=== PATIENT | female | born 1965 | race Hispanic/Latino ===

== ENCOUNTER 2019-05-30 08:39 | Emergency (ER) | payer SELFPAY ==
--- NOTE | 2019-05-30 09:21 | Emergency Department Report ---
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 On Site Property Manager initially heard a noise and found patient on the floor. She assisted patient off the floor and patient had another witnessed fall 2 to 5 minutes later. Patient does not complain of any pain. On Site Property Manager stated patient apartment this a.m. Patient is alert and oriented to self only and does not know place or year. On Site Property Manager states patient is at her baseline mental status, has been eating and drinking appropriately, has not had any complaints other than chronic intermittent back pain. At [facility] Pt walks without assistance. - Related Data Home Medications Medication Instructions Recorded Confirmed Last Taken Donepezil HCl [Donepezil HCl Odt] 10 mg PO HS 05/30/19 05/30/19 05/29/19 Ferrous Sulfate [Iron 325 MG] 325 mg PO AC 05/30/19 05/30/19 05/29/19 Memantine HCl 5 mg PO BID 05/30/19 05/30/19 05/29/19 Previous Rx's Medication Instructions Recorded Last Taken Type Nitrofurantoin Hale/M-Cryst 100 mg PO Q12HR #10 capsule 05/30/19 Unknown Rx [Macrobid CAP] Allergies Allergy/AdvReac Type Severity Reaction Status Date / Time No Known Allergies Allergy Unverified 05/30/19 08:57 ED Review of Systems ROS: Stated complaint: FALL/NAUSEA/VOMITING Other details as noted in HPI Comment: All other systems reviewed and negative ED Past Medical Hx - Past Medical History Previous Medical History?: Yes Hx Dementia: Yes Additional medical history: Alzheimers - Social History Smoking Status: Smoker, Current Status Unknown Substance Use Type: None - Medications Home Medications: Home Medications Medication Instructions Recorded Confirmed Last Taken Type Donepezil HCl [Donepezil HCl Odt] 10 mg PO HS 05/30/19 05/30/19 05/29/19 History Ferrous Sulfate [Iron 325 MG] 325 mg PO AC 05/30/19 05/30/19 05/29/19 History Memantine HCl 5 mg PO BID 05/30/19 05/30/19 05/29/19 History Nitrofurantoin Hale/M-Cryst 100 mg PO Q12HR #10 capsule 05/30/19 Unknown Rx [Macrobid CAP] ED Physical Exam - General Limitations: Other - Other Other exam information: General: No acute distress Head: Mild redness to forehead without hematoma Eyes: normal appearance ENT: Moist mucous membranes Neck: Normal appearance, no midline tenderness Chest: Clear to auscultation bilaterally CV: Regular rate and rhythm Abdomen: Soft, normal bowel sounds, nontender, nondistended, no rebound or guarding Back: Normal inspection Extremity: Normal inspection, full range of motion Neuro: Alert O x 1, no facial asymmetry, speech clear, no gross motor sensory deficit, [id number] function intact Psych: Appropriate behavior Skin: No rash ED Course Vital Signs 05/30/19 05/30/19 05/30/19 08:46 08:51 09:00 Temperature 98.1 F Pulse Rate 74 Respiratory 16 Rate Blood Pressure 131/50 131/50 Blood Pressure [Right] O2 Sat by Pulse 71 L 97 98 Oximetry 05/30/19 05/30/19 05/30/19 09:07 09:36 10:00 Temperature Pulse Rate 75 83 Respiratory 16 21 Rate Blood Pressure 122/71 122/71 Blood Pressure 122/71 [Right] O2 Sat by Pulse 99 72 L 96 Oximetry 05/30/19 05/30/19 05/30/19 10:30 11:00 11:30 Temperature Pulse Rate 76 74 66 Respiratory 16 13 11 L Rate Blood Pressure 146/61 111/63 129/62 Blood Pressure [Right] O2 Sat by Pulse 100 96 100 Oximetry 05/30/19 05/30/19 05/30/19 12:00 12:30 13:00 Temperature Pulse Rate 61 71 73 Respiratory 13 13 15 Rate Blood Pressure 128/64 140/83 136/86 Blood Pressure [Right] O2 Sat by Pulse 100 99 100 Oximetry ED Medical Decision Making - Lab Data Result diagrams: 05/30/19 10:04 05/30/19 10:04 Lab Results 05/30/19 05/30/19 05/30/19 Range/Units 10:04 10:04 10:09 WBC 6.9 (4.5-11.0) K/mm3 RBC 5.36 H (3.65-5.03) M/mm3 Hgb 15.0 H (10.1-14.3) gm/dl Hct 45.2 H (30.3-42.9) % MCV 85 (79-97) fl MCH 28 (28-32) pg MCHC 33 (30-34) % RDW 13.1 L (13.2-15.2) % Plt Count 281 (140-440) K/mm3 Lymph % (Auto) 15.0 (13.4-35.0) % Hale % (Auto) 6.6 (0.0-7.3) % Eos % (Auto) 1.1 (0.0-4.3) % Baso % (Auto) 0.6 (0.0-1.8) % Lymph # 1.0 L (1.2-5.4) K/mm3 Hale # 0.5 (0.0-0.8) K/mm3 Eos # 0.1 (0.0-0.4) K/mm3 Baso # 0.0 (0.0-0.1) K/mm3 Seg Neutrophils % 76.7 H (40.0-70.0) % Seg Neutrophils # 5.3 (1.8-7.7) K/mm3 Sodium 143 (137-145) mmol/L Potassium 4.7 (3.6-5.0) mmol/L Chloride 103.8 (98-107) mmol/L Carbon Dioxide 24 (22-30) mmol/L Anion Gap 20 mmol/L BUN 12 (7-17) mg/dL Creatinine 0.8 (0.7-1.2) mg/dL Estimated GFR > 60 ml/min BUN/Creatinine Ratio 15 % Glucose 92 (65-100) mg/dL Calcium 10.0 (8.4-10.2) mg/dL Urine Color Yellow (Yellow) Urine Turbidity Hazy (Clear) Urine pH 5.0 (5.0-7.0) Ur Specific [place] 1.035 H (1.003-1.030) Urine Protein 100 mg/dl (Negative) mg/dL Urine Glucose (UA) Negative (Negative) mg/dL Urine Ketones Negative (Negative) mg/dL Urine Blood 5-10 (Negative) Urine Nitrite Negative (Negative) Urine Bilirubin Negative (Negative) Urine Urobilinogen < 0.2 (<2.0) mg/dL Ur Leukocyte Esterase Moderate (Negative) Urine WBC (Auto) 25.0 H (0.0-6.0) /HPF Urine RBC (Auto) 11.0 (0.0-6.0) /HPF U Epithel Cells (Auto) 47.0 H (0-13.0) /HPF Urine Bacteria (Auto) 4+ (Negative) /HPF Ur Transition Epith Cell 2 /HPF Hyaline Casts 35 /LPF Urine Mucus 3+ /HPF - Radiology Data Radiology results: report reviewed CT HEAD WITHOUT CONTRAST INDICATION / CLINICAL INFORMATION: Headache after a fall, dementia. TECHNIQUE: Axial imaging performed from the skull apex through the skull base without the use of contrast. Sagittal and coronal reformatted images. All CT scans at this location are performed using CT dose reduction for ALARA by means of automated exposure control. COMPARISON: None available. FINDINGS: CEREBRAL PARENCHYMA: No significant abnormality. No acute territorial infarct. Age appropriate mild cortical volume loss is noted. HEMORRHAGE: None. EXTRA-AXIAL SPACES: Normal in size and morphology for the patient's age. VENTRICULAR SYSTEM: Normal in size and morphology for the patient's age. MIDLINE SHIFT OR HERNIATION: None. CEREBELLUM / BRAINSTEM: No significant abnormality. CALVARIUM: No significant abnormality. ORBITS: Normal as visualized. PARANASAL SINUSES / MASTOID AIR CELLS: Normal as visualized. SOFT TISSUES of HEAD: A rounded well-circumscribed soft tissue lesion containing fat and a fluid level is identified just lateral to the right orbit measuring 3.7 x 2.4 x 3.8 cm. This presumably represents a lipoma. This fluid level within may represent a small amount of hemorrhage. ADDITIONAL FINDINGS: None. IMPRESSION: No acute intracranial abnormality. Age-appropriate cortical volume loss. Slightly complex soft tissue lipoma lateral to the right orbit. Please correlate with the patient. CT CERVICAL SPINE WITHOUT CONTRAST INDICATION: MAIN: NECK PAIN AFTER A fall, dementia. TECHNIQUE: Axial imaging performed through the cervical spine without the use of contrast. Sagittal and coronal reconstructed images were also revie wed. All CT scans at this location are performed using CT dose reduction for ALARA by means of automated exposure control. COMPARISON: None FINDINGS: Alignment: Spinal alignment is normal. There is straightening of the normal lordosis which could be secondary to positioning or muscular spasm. Bones: There is no acute osseous abnormality. Mild to moderate degenerative disc disease with bilateral uncovertebral spurring is identified at C5-6 and C6-7. Moderate bilateral neural foraminal narrowing is suspected at these levels. The remaining levels are within normal limits. Soft tissues: No acute or significant incidental soft tissue abnormality. IMPRESSION: No acute abnormality. Cervical spondylosis as described. - Medical Decision Making Patient without physical complaints in the ED and normal pulse ox with erroneous values in the 70s documented on medical record. CT head, CT cervical spine, and labs unremarkable. UA with possible infection however, high level of epithelial cells suggesting contamination. Orthostatics positive with increased heart rate with standing. High specific gravity on UA also suggest dehydration. Patient received Macrobid p.o. and 1 L normal saline and tolerated ambulation in ed without difficulty. She will be discharged on Macrobid for UTI and encouraged to increase oral fluid intake today. - Differential Diagnosis Fracture, contusion, ICH, Critical Care Time: No Critical care attestation.: If time is entered above; I have spent that time in minutes in the direct care of this critically ill patient, excluding procedure time. ED Disposition Clinical Impression: Fall, UTI (urinary tract infection), Dehydration Disposition: DC-01 TO HOME OR SELFCARE Is pt being admited?: No Does the pt Need Aspirin: No Condition: Stable Instructions: Fall Prevention for Older Adults (ED), Dehydration (ED), Urinary Tract Infection in Women (ED) Additional Instructions: Take the medication as prescribed. Follow-up with your doctor or doctor/clinic provided. Return if symptoms worsen as indicated by your discharge instructions. Prescriptions: Nitrofurantoin Hale/M-Cryst [Macrobid CAP] 100 mg PO Q12HR #10 capsule Referrals: PRIMARY CARE, [Primary Care Provider] - 3-5 Days Time of Disposition: 13:41
--- NOTE | 2019-05-30 09:56 | Cat Scan Report ---
CT HEAD WITHOUT CONTRAST INDICATION / CLINICAL INFORMATION: Headache after a fall, dementia. TECHNIQUE: Axial imaging performed from the skull apex through the skull base without the use of cont rast. Sagittal and coronal reformatted images. All CT scans at this location are performed using CT dose reduction for ALARA by means of automated exposure control. COMPARISON: None available. FINDINGS: CEREBRAL PARENCHYMA: No significant abnormality. No acute territorial infarct. Age appropriate mild c ortical volume loss is noted. HEMORRHAGE: None. EXTRA-AXIAL SPACES: Normal in size and morphology for the patient's age. VENTRICULAR SYSTEM: Normal in size and morphology for the patient's age. MIDLINE SHIFT OR HERNIATION: None. CEREBELLUM / BRAINSTEM: No significant abnormality. CALVARIUM: No significant abnormality. ORBITS: Normal as visualized. PARANASAL SINUSES / MASTOID AIR CELLS: Normal as visualized. SOFT TISSUES of HEAD: A rounded well-circumscribed soft tissue lesion containing fat and a fluid leve l is identified just lateral to the right orbit measuring 3.7 x 2.4 x 3.8 cm. This presumably represe nts a lipoma. This fluid level within may represent a small amount of hemorrhage. ADDITIONAL FINDINGS: None. IMPRESSION: No acute intracranial abnormality. Age-appropriate cortical volume loss. Slightly complex soft tissue lipoma lateral to the right orbit. Please correlate with the patient. Signer Name: Rey Mckenzie Jr, MD Signed: 05/30/2019 9:52 AM Workstation Name: [id number]
--- NOTE | 2019-05-30 09:59 | Cat Scan Report ---
CT CERVICAL SPINE WITHOUT CONTRAST INDICATION: MAIN: NECK PAIN AFTER A fall, dementia. TECHNIQUE: Axial imaging performed through the cervical spine without the use of contrast. Sagittal and coronal reconstructed images were also reviewed. All CT scans at this location are performed us ing CT dose reduction for ALARA by means of automated exposure control. COMPARISON: None FINDINGS: Alignment: Spinal alignment is normal. There is straightening of the normal lordosis which could be secondary to positioning or muscular spasm. Bones: There is no acute osseous abnormality. Mild to moderate degenerative disc disease with bilat eral uncovertebral spurring is identified at C5-6 and C6-7. Moderate bilateral neural foraminal narro wing is suspected at these levels. The remaining levels are within normal limits. Soft tissues: No acute or significant incidental soft tissue abnormality. IMPRESSION: No acute abnormality. Cervical spondylosis as described. Signer Name: Rey Mckenzie Jr, MD Signed: 05/30/2019 9:54 AM Workstation Name: [id number]
[2019-05-30 10:28] LABS: Basophils % (Auto) 0.6 % (0.0-1.8); Eosinophils # (Auto) 0.1 K/mm3 (0.0-0.4); Eosinophils % (Auto) 1.1 % (0.0-4.3); Hematocrit 45.2 % (30.3-42.9); Mean Corpuscular HGB Conc 33 % (30-34); Mean Corpuscular Volume 85 fl (79-97); Monocytes # (Auto) 0.5 K/mm3 (0.0-0.8); Monocytes % (Auto) 6.6 % (0.0-7.3); Platelet Count 281 K/mm3 (140-440); Red Blood Count 5.36 M/mm3 (3.65-5.03); Red Cell Distribution Width 13.1 % (13.2-15.2)
[2019-05-30 10:48] LABS: BUN/Creatinine Ratio 15; Blood Urea Nitrogen 12 mg/dL (7-17); Hemolysis Index 20
[2019-05-30 11:08] LABS: Bilirubin,Urine Negative (Negative); Color,Urine Yellow (Yellow)
[2019-05-30 11:09] LABS: Urobilinogen,Urine < 0.2 mg/dL (<2.0)
[2019-05-30 11:21] LABS: Bacteria,Urine 4+ /HPF (Negative); Hyaline Casts,Urine 35 /LPF; Mucus,Urine 3+ /HPF
[2019-05-30] MEDS ORDERED: NITROFURANTOIN MONOHYD/M-CRYST 100 MG CAP PO ONE (11:43)
[2019-05-30] MEDS ORDERED: SODIUM CHLORIDE 0.9% 1000 ML 1,000 ML IV ONE (11:43)
[2019-05-30 13:29] VITALS: BP 136/86
== END 2019-05-30 13:55 | disposition home or self-care (01) ==
LOC: ED 08:39
DX: S00.83XA Contusion of other part of head, initial encounter (principal); N39.0 Urinary tract infection, site not specified; E86.0 Dehydration; G30.9 Alzheimer's disease, unspecified; F02.80 Dementia in other diseases classified elsewhere, unspecified severity, without behavioral disturbance, psychotic disturbance, mood disturbance, and anxiety; F17.200 Nicotine dependence, unspecified, uncomplicated; W18.30XA Fall on same level, unspecified, initial encounter; Y93.89 Activity, other specified; Y92.89 Other specified places as the place of occurrence of the external cause; Y99.8 Other external cause status
CPT/HCPCS: 36415; 70450; 72125; 80048; 81001; 85025; 87086; 93005; 93010; 96360; 99285; J7030

== ENCOUNTER 2021-02-05 23:40 | Emergency (ER) | payer MEDICAID, MEDICARE ==
--- NOTE | 2021-02-06 00:20 | Emergency Department Report ---
ED General Adult HPI - General Chief complaint: Medical Clearance Stated complaint: Patient is demented. No collateral available from family Time Seen by Provider: 02/06/21 00:17 Source: patient, family, EMS ( EMS documentation not available at time of chart dictation ), RN notes reviewed, old records reviewed Mode of arrival: Stretcher Limitations: Other (Patient is demented. Patient is a poor historian) - History of Present Illness Initial comments: The patient was evaluated in the emergency department for symptoms described in the history of present illness. He/she was evaluated in the context of the global COVID-19 pandemic, which necessitated consideration that the patient might be at risk for infection with the virus that causes COVID-19. Institutional protocols and algorithms that pertain to the evaluation of patients at risk for COVID-19 are in a state of rapid change based on information released by regulatory bodies including the CDC and federal and state organizations. These policies and algorithms were followed during the p nelia's care in the emergency department. Please note that these policies, procedures and recommendations changed on a rapid basis. The patient is a 55-year-old female. She is not known to myself previously. The patient herself endorses no medical complaints. She denies physical pain. She denies homicidality and suicidality. She appears to be confused. Review of chart indicates that she has a history of dementia. Triage nurse documented that EMS were contacted because the patient was r eportedly agitated. Contacted listed phone number on the patient's chart, and discussed with her br other, Mr. Matthew Blair; [phone]. He states the patient does not live with him. He states the patient lives with Ms. Jennifer Alcantar; [phone]. He stated that Ms. Alcantar will be able to answer my questions. Call of the listed phone number. Nobody answered. Left voicemail for call back. Mr. Matthew Blair subsequently called back with department, and informed the city secretary staff that Ms. Alcantar is deliberately not answering phone calls. It is unclear why. No additional history is available at this time. No collateral information is available at this time. EMS documentation is not available to myself for review at this time. The patient denies all medical and physical complaints. - Related Data Home Medications Medication Instructions Recorded Confirmed Last Taken Donepezil HCl [Donepezil HCl Odt] 10 mg PO HS 02/17/20 10/27/21 02/16/20 Memantine HCl 5 mg PO BID 05/30/19 02/06/21 05/29/19 Ergocalciferol (Vitamin D2) 50 mcg PO DAILY 02/06/21 02/06/21 Unknown [Vitamin D2] Allergies Allergy/AdvReac Type Severity Reaction Status Date / Time No Known Allergies Allergy Verified 02/05/21 23:59 ED Review of Systems ROS: Stated complaint: ALTERED MENTAL STATUS Other details as noted in HPI Comment: Unobtainable due to pts medical conditions ED Past Medical Hx - Past Medical History Hx Dementia: Yes Additional medical history: Alzheimers - Social History Smoking Status: Smoker, Current Status Unknown Substance Use Type: None - Medications Home Medications: Home Medications Medication Instructions Recorded Confirmed Last Taken Type Donepezil HCl [Donepezil HCl Odt] 10 mg PO HS 05/30/19 02/06/21 05/29/19 History Memantine HCl 5 mg PO BID 05/30/19 02/06/21 05/29/19 History Ergocalciferol (Vitamin D2) 50 mcg PO DAILY 02/06/21 02/06/21 Unknown History [Vitamin D2] ED Physical Exam - General Limitations: Other (Patient is demented and a poor historian) General appearance: alert, in no apparent distress - Head Head exam: Present: atraumatic, normocephalic - Eye Eye exam: Present: normal appearance, EOMI. Absent: nystagmus - ENT ENT exam: Present: normal exam, normal orophraynx, mucous membranes moist, normal external ear exam - Neck Neck exam: Present: normal inspection, full ROM. Absent: tenderness, meningismus - Respiratory Respiratory exam: Present: normal lung sounds bilaterally. Absent: respiratory distress, wheezes, rales, rhonchi, stridor, decreased breath sounds - Cardiovascular Cardiovascular Exam: Present: regular rate, normal rhythm, normal heart sounds. Absent: bradycardia, tachycardia, irregular rhythm, systolic murmur, diastolic murmur, rubs, gallop - GI/Abdominal GI/Abdominal exam: Present: soft. Absent: distended, tenderness, guarding, rebound, rigid, pulsatile mass - Extremities Exam Extremities exam: Present: normal inspection, full ROM, other (2+ pulses noted in the bilateral upper and lower extremities. There is no palpable cord. negative Homans sign. Muscular compartments are soft. The pelvis is stable.). Absent: pedal edema, calf tenderness - Back Exam Back exam: Present: normal inspection, full ROM. Absent: tenderness, CVA tenderness (R), CVA tenderness (L), muscle spasm, vertebral tenderness - Neurological Exam Neurological exam: Present: alert (The patient is alert to name. The patient follows commands), normal gait, other (No facial droop. Tongue midline. Extraocular movements intact bilaterally. Facial sensation intact to light touch in V1, V2, V3 distribution bilaterally. 5 and a 5 strength in 4 extremities. Sensation intact to light touch in 4 extremities.). Absent: motor sensory deficit - Psychiatric Psychiatric exam: Absent: homicidal ideation, suicidal ideation - Skin Skin exam: Present: warm, dry, intact, normal color. Absent: rash ED Course Vital Signs 02/05/21 02/06/21 02/06/21 23:58 00:26 07:53 Temperature 98.4 F 97.7 F Pulse Rate 80 84 Respiratory 18 16 Rate Blood Pressure 116/60 122/76 [Right] O2 Sat by Pulse 97 96 96 Oximetry 02/06/21 02/07/21 20:51 12:13 Temperature 98.3 F 98.0 F Pulse Rate 80 80 Respiratory 18 18 Rate Blood Pressure 127/60 134/62 [Right] O2 Sat by Pulse 96 96 Oximetry - Reevaluation(s) Reevaluation #1: 02/06/21 03:20 Differential diagnosis, including but not limited to: Dementia, electrolyte derangement, urinary tract infection, pneumonia, encounter for behavioral health screening examination, encounter for medical screening examination Assessment and plan: 55-year-old female, with a known history of dementia, who is referred/sent to the emergency room for unclear reasons. History of present illness is limited as the patient is demented and a poor historian. In the emergency room, we are not able to get in touch with family members to obtain collateral information, or historical information. Objectively speaking, the patient is afebrile, with reassuring vital signs, in no acute distress, and aside from her current cognitive issues, does not appear to have a significantly abnormal physical examination. Her laboratory studies were unremarkable. Noncontrast CT scan of the brain and x-ray of the chest were unremarkable. Urinalysis is pending. In my opinion, this patient does not meet criteria for 1013 hold or involuntary hold. Nevertheless, have requested mental health evaluation. Have also requested case management evaluation to assist in obtaining safe disposition, as it is unlikely that this patient will be placed in a psychiatric facility. Care be transferred to the [facility] ER physician, to follow-up on urinalysis, psychiatric recommendations, and case management recommendations. Have also requested that nursing team attempt to reconcile patient's home medications. Holding orders initiated 02/06/21 05:40 No events overnight. No call back from family. Care will be transferred to the [facility] ER physician, Dr. Imani Alegria, To follow-up on urinalysis, case management, and psychiatry recommendations. Patient medically suitable for psychiatric and/or social disposition at this time. She does not appear to have an emergent medical condition present. City urinalysis to be suggestive of UTI, the ER will be happy to provide antibiotics. ED Medical Decision Making - Lab Data Result diagrams: 02/06/21 01:31 02/06/21 01:31 Vital Signs 02/05/21 02/06/21 23:58 00:26 Temperature 98.4 F 97.7 F Pulse Rate 80 84 Respiratory 18 16 Rate Blood Pressure 116/60 122/76 [Right] O2 Sat by Pulse 97 96 Oximetry Lab Results 02/06/21 02/06/21 02/06/21 Range/Units 01:31 01:31 01:31 WBC 5.8 (4.5-11.0) K/mm3 RBC 4.56 (3.65-5.03) M/mm3 Hgb 12.7 (10.1-14.3) gm/dl Hct 39.3 (30.3-42.9) % MCV 86 (79-97) fl MCH 28 (28-32) pg MCHC 32 (30-34) % RDW 12.8 L (13.2-15.2) % Plt Count 285 (140-440) K/mm3 Lymph % (Auto) 21.2 (13.4-35.0) % [place] % (Auto) 10.1 H (0.0-7.3) % Eos % (Auto) 2.1 (0.0-4.3) % Baso % (Auto) 0.7 (0.0-1.8) % Lymph # (Auto) 1.2 (1.2-5.4) K/mm3 [place] # (Auto) 0.6 (0.0-0.8) K/mm3 Eos # (Auto) 0.1 (0.0-0.4) K/mm3 Baso # (Auto) 0.0 (0.0-0.1) K/mm3 Seg Neutrophils % 65.9 (40.0-70.0) % Seg Neutrophils # 3.8 (1.8-7.7) K/mm3 Sodium 143 (137-145) mmol/L Potassium 3.7 (3.6-5.0) mmol/L Chloride 104.7 (98-107) mmol/L Carbon Dioxide 28 (22-30) mmol/L Anion Gap 14 mmol/L BUN 23 H (7-17) mg/dL Creatinine 1.2 (0.6-1.2) mg/dL Estimated GFR 46 ml/min BUN/Creatinine Ratio 19 % Glucose 98 (65-100) mg/dL Calcium 9.6 (8.4-10.2) mg/dL TSH 1.970 (0.270-4.200) mlU/mL Salicylates (2.8-20.0) mg/dL Acetaminophen (10.0-30.0) ug/mL Plasma/Serum Alcohol (0-0.07) % 02/06/21 02/06/21 02/06/21 Range/Units 01:31 01:31 01:31 WBC (4.5-11.0) K/mm3 RBC (3.65-5.03) M/mm3 Hgb (10.1-14.3) gm/dl Hct (30.3-42.9) % MCV (79-97) fl MCH (28-32) pg MCHC (30-34) % RDW (13.2-15.2) % Plt Count (140-440) K/mm3 Lymph % (Auto) (13.4-35.0) % [place] % (Auto) (0.0-7.3) % Eos % (Auto) (0.0-4.3) % Baso % (Auto) (0.0-1.8) % Lymph # (Auto) (1.2-5.4) K/mm3 [place] # (Auto) (0.0-0.8) K/mm3 Eos # (Auto) (0.0-0.4) K/mm3 Baso # (Auto) (0.0-0.1) K/mm3 Seg Neutrophils % (40.0-70.0) % Seg Neutrophils # (1.8-7.7) K/mm3 Sodium (137-145) mmol/L Potassium (3.6-5.0) mmol/L Chloride (98-107) mmol/L Carbon Dioxide (22-30) mmol/L Anion Gap mmol/L BUN (7-17) mg/dL Creatinine (0.6-1.2) mg/dL Estimated GFR ml/min BUN/Creatinine Ratio % Glucose (65-100) mg/dL Calcium (8.4-10.2) mg/dL TSH (0.270-4.200) mlU/mL Salicylates < 0.3 L (2.8-20.0) mg/dL Acetaminophen 5.0 L (10.0-30.0) ug/mL Plasma/Serum Alcohol < 0.01 (0-0.07) % - EKG Data -: EKG Interpreted by Ok EKG shows normal: sinus rhythm Rate: normal - EKG Data 02/06/21 03:15 The EKG is interpreted at 01: 2 5 Sinus rhythm, rate 68 bpm. Normal axis. QTC 472 ms. Left ventricular hypertrophy. Incomplete right bundle branch block. Abnormal EKG. Not a STEMI. - Radiology Data Radiology results: pending, report reviewed, image reviewed CT HEAD WITHOUT CONTRAST INDICATION / CLINICAL INFORMATION: Medical Clearance Psych. TECHNIQUE: All CT scans at this location are performed using CT dose reduction for ALARA by means of automated exposure control. COMPARISON: 05/30/2019 FINDINGS: ADDITIONAL FINDINGS: There is diffuse cerebral atrophy. Compensatory increase in ventricular size. No acute hemorrhage is seen. Visualized orbits appear normal. IMPRESSION: 1. Diffuse cerebral atrophy with compensatory increase in ventricular size. No acute findings. Signer Name: Arden Vicente MD Signed: 02/06/2021 1:19 AM Workstation Name: [id number] CHEST 1 VIEW 02/06/2021 12:45 AM INDICATION / CLINICAL INFORMATION: Medical Clearance Psych. COMPARISON: None available. FINDINGS: SUPPORT DEVICES: None. HEART / MEDIASTINUM: No significant abnormality. LUNGS / PLEURA: No significant pulmonary or pleural abnormality. No pneumothorax. ADDITIONAL FINDINGS: Scoliosis IMPRESSION: 1. No acute findings. Signer Name: Arden Vicente MD Signed: 02/06/2021 12:48 AM Workstation Name: [id number] Critical care attestation.: If time is entered above; I have spent that time in minutes in the direct care of this critically ill patient, excluding procedure time. ED Disposition Clinical Impression: Encounter for behavioral health screening, Encounter for medical screening examination, History of dementia, Case management patient Disposition: [address] [place] [address] Is pt being admited?: No Does the pt Need Aspirin: No Condition: Good Referrals: PRIMARY CARE, [Primary Care Provider] - 3-5 Days
--- NOTE | 2021-02-06 01:52 | XRay Report ---
CHEST 1 VIEW 02/06/2021 12:45 AM INDICATION / CLINICAL INFORMATION: Medical Clearance Psych. COMPARISON: None available. FINDINGS: SUPPORT DEVICES: None. HEART / MEDIASTINUM: No significant abnormality. LUNGS / PLEURA: No significant pulmonary or pleural abnormality. No pneumothorax. ADDITIONAL FINDINGS: Scoliosis IMPRESSION: 1. No acute findings. Signer Name: Arden Vicente MD Signed: 02/06/2021 1:48 AM Workstation Name: [id number]
[2021-02-06 01:57] LABS: Basophils % (Auto) 0.7 % (0.0-1.8); Eosinophils # (Auto) 0.1 K/mm3 (0.0-0.4); Eosinophils % (Auto) 2.1 % (0.0-4.3); Hematocrit 39.3 % (30.3-42.9); Hemoglobin 12.7 gm/dl (10.1-14.3); Lymphocytes # (Auto) 1.2 K/mm3 (1.2-5.4); Lymphocytes % (Auto) 21.2 % (13.4-35.0); Mean Corpuscular HGB Conc 32 % (30-34); Mean Corpuscular Volume 86 fl (79-97); Monocytes # (Auto) 0.6 K/mm3 (0.0-0.8); Monocytes % (Auto) 10.1 % (0.0-7.3); Platelet Count 285 K/mm3 (140-440); Red Blood Count 4.56 M/mm3 (3.65-5.03); Red Cell Distribution Width 12.8 % (13.2-15.2)
[2021-02-06 02:14] LABS: Calcium 9.6 mg/dL (8.4-10.2)
--- NOTE | 2021-02-06 02:24 | Cat Scan Report ---
CT HEAD WITHOUT CONTRAST INDICATION / CLINICAL INFORMATION: Medical Clearance Psych. TECHNIQUE: All CT scans at this location are performed using CT dose reduction for ALARA by means of automated e xposure control. COMPARISON: 05/30/2019 FINDINGS: ADDITIONAL FINDINGS: There is diffuse cerebral atrophy. Compensatory increase in ventricular size. No acute hemorrhage is seen. Visualized orbits appear normal. IMPRESSION: 1. Diffuse cerebral atrophy with compensatory increase in ventricular size. No acute findings. Signer Name: Arden Vicente MD Signed: 02/06/2021 2:19 AM Workstation Name: [id number]
[2021-02-06] MEDS ORDERED: ONDANSETRON 4 MG ODT TAB PO PRN (03:23)
[2021-02-06] MEDS ORDERED: ACETAMINOPHEN 325 MG TAB PO PRN (03:23)
--- NOTE | 2021-02-06 10:28 | Consultation ---
History of Present Illness - Reason for Consult Consult date: 02/06/21 Reason for consult: psychosis - History of Present Psychiatric Illness Yanely Napoles is a 55y/o female I evaluated today. The patient is pacing the silva. Her thoughts are disorganized and she's having flight of ideas. Her speech is nonsensical. Due to her thought process she is unable to make complete sentences. She is difficult to follow. She says "a door is short, but it's the one outside." She then jumps and starts talking about the other patient yelling. She says "she's yelling about my cats." She says "I'm on the about time." PAST PSYCHIATRIC HISTORY: Unable to assess PAST MEDICAL HISTORY: None reported Family Psychiatric History: None reported or documented SOCIAL HISTORY Unable to assess REVIEW OF SYSTEMS Unable to assess MENTAL STATUS EXAMINATION Unable to assess Assessment and Plan (1) Acute psychosis TREATMENT PLAN 1013 Olanzapine 5mg po daily Trazodone 50mg qhs Vistaril 25mg po BID Sitter: per primary Medical: per primary Disposition: Recommend acute psychiatric treatment Will follow. Thanks Case staffed with Dr. Yun Medications and Allergies Allergies Allergy/AdvReac Type Severity Reaction Status Date / Time No Known Allergies Allergy Verified 02/05/21 23:59 Home Medications Medication Instructions Recorded Confirmed Last Taken Type Donepezil HCl [Donepezil HCl Odt] 10 mg PO HS 05/30/19 05/30/19 05/29/19 History Ferrous Sulfate [Iron 325 MG] 325 mg PO AC 05/30/19 05/30/19 05/29/19 History Memantine HCl 5 mg PO BID 05/30/19 05/30/19 05/29/19 History Nitrofurantoin Isabella/M-Cryst 100 mg PO Q12HR #10 capsule 05/30/19 Unknown Rx [Macrobid CAP] Ondansetron [Zofran Odt] 4 mg PO Q8HR PRN #20 tab.rapdis 05/30/19 Unknown Rx Active Meds: Active Medications Acetaminophen (Acetaminophen 325 Mg Tab) 650 mg PO Q6HR PRN PRN Reason: PAIN Ondansetron HCl (Ondansetron 4 Mg Odt Tab) 4 mg PO Q6HR PRN PRN Reason: Nausea Mental Status Exam - Vital signs Last Vital Signs Temp 97.7 F 02/06/21 00:26 Pulse 84 02/06/21 00:26 Resp 16 02/06/21 00:26 BP 122/76 02/06/21 00:26 Pulse Ox 96 02/06/21 07:53 Results Result Diagrams: 02/06/21 01:31 02/06/21 01:31 Abnormal lab results 02/06/21 02/06/21 02/06/21 Range/Units 01:31 01:31 01:31 RDW 12.8 L (13.2-15.2) % [place] % (Auto) 10.1 H (0.0-7.3) % BUN 23 H (7-17) mg/dL Salicylates < 0.3 L (2.8-20.0) mg/dL Acetaminophen (10.0-30.0) ug/mL 02/06/21 Range/Units 01:31 RDW (13.2-15.2) % [place] % (Auto) (0.0-7.3) % BUN (7-17) mg/dL Salicylates (2.8-20.0) mg/dL Acetaminophen 5.0 L (10.0-30.0) ug/mL All other labs normal.
[2021-02-06] MEDS ORDERED: HALOPERIDOL LACTATE 5 MG/1 ML INJ IM ONE (10:33)
--- NOTE | 2021-02-06 10:33 | Event Note ---
Patient is medically clear for psychiatric care. Patient has refused treatment. I have ordered coronavirus PCR test. Case management disposition requested. Psychiatric team does not recommend inpatient treatment. Patient has known history of dementia.
[2021-02-06] MEDS: hydrOXYzine PAMOATE 25 MG CAP PO SCH ×2 (11:22→22:32)
--- NOTE | 2021-02-06 17:45 | Electrocardiograph Report ---
[facility] Test Date: 2021-02-06 Test Time: 01:25:48 Pat Name: MAIN JULIANNA Department: Room: Gender: F Rn Oncology: ROHIT : 1965 Requested By: LO ROGERS Order Number: [id number] Reading MD: Chance Hendrix Measurements Intervals [place] Rate: 68 P: 73 MI: 154 QRS: 47 QRSD: 99 T: 62 QT: 443 QTc: 472 Interpretive Statements Sinus rhythm Consider left ventricular hypertrophy Otherwise normal ECG No previous ECG available for comparison Electronically Signed On 02-06-2021 17:45:09 EDT by Chance Hendrix
[2021-02-06] MEDS ORDERED: traZODone 50 MG TAB PO SCH (22:00)
--- NOTE | 2021-02-07 08:04 | Progress Note ---
Subjective - Reason for Consult Consult date: 02/07/21 Reason for consult: Psychosis - Chief Complaint Chief complaint: The patient was seen today. Her speech is nonsensical. She has poor insight. I am unable to follow her thought process. She is exhibiting loose associations and word salad. She is unable to answer simple questions. I ask the patient how she feels, the patient says "I want you short. Get it. I took the dog. Dot lauri dot." She then says "that's what I said." I ask the patient is she slept well, she looks at me and says "yes, I split it. It was this big." She then starts "she's gone get a big dog like." The patient then reaches for my hand and says "you see your hand and how it comes back." Spoke to the patient's sister. Mrs. Alcantar. She says the patient was "her normal self about two weeks ago." She says then she started hallucinating and acting out. She says prior to coming to live with her recently, the patient lived with the brother for about 5 years. She says prior to living with the brother the patient was at a [facility] and was living in [place]. The sister couldn't give a lot of insight or history concerning the patient's mental or physical health. REVIEW OF SYSTEMS Unable to assess MENTAL STATUS EXAMINATION Unable to assess Assessment and Plan (1) Acute psychosis TREATMENT PLAN 1013 Recommend a complete medical work up to rule out delirium Increased Olanzapine 10mg po daily Klonopin 0.25mg po BID X 3 days Sitter: per primary Medical: per primary Disposition: Recommend acute psychiatric treatment. It is my recommendation the patient undergo a complete medical workup to rule out delirium. Will follow. Thanks Case staffed with Dr. Yun Mental Status Exam - Vital signs Last Vital Signs Temp 98.3 F 02/06/21 20:51 Pulse 80 02/06/21 20:51 Resp 18 02/06/21 20:51 BP 127/60 02/06/21 20:51 Pulse Ox 96 02/06/21 20:51
[2021-02-07] MEDS ORDERED: clonazePAM 0.5 MG TAB PO SCH (10:00)
[2021-02-07] MEDS: hydrOXYzine PAMOATE 25 MG CAP PO SCH (10:21)
--- NOTE | 2021-02-07 11:18 | Event Note ---
Date: 02/07/21 Patient is continued to show poor insight and delusional thinking. According to the patient's sister who gave some collateral information to our mental health assessment team patient symptoms are new as of the last several weeks. Regarding the patient's medical clearance she is medically cleared. CT head shows is early atrophic changes that appear accelerated for her age however no acute process was found. This likely would not explain an acute change in the patient's behavior. At this time a urinalysis and drug screen have not resulted. En couraged the nurses to more actively attempt to get a urine sample from the patient so that she can be further ruled out for a metabolic cause of the patient's behavior changes. At this time the patient is to continue is a 1013. Again we are awaiting the results of the urinalysis. Please see the mental health assessment note which is below. Psychiatry Progress Note Patient Name: MAIN LEVINE Date of : 1965 Patient Status: Emergency Emergency Provider: LO ROGERS Date: 02/07/21 07:59 Initialization Date: 02/07/21 07:59 Subjective - Reason for Consult Consult date: 02/07/21 Reason for consult: Psychosis - Chief Complaint Chief complaint: The patient was seen today. Her speech is nonsensical. She has poor insight. I am unable to follow her thought process. She is exhibiting loose associations and word salad. She is unable to answer simple questions. I ask the patient how she feels, the patient says "I want you short. Get it. I took the dog. Dot lauri dot." She then says "that's what I said." I ask the patient is she slept well, she looks at me and says "yes, I split it. It was this big." She then starts "she's gone get a big dog like." The patient then reaches for my hand and says "you see your hand and how it comes back." Spoke to the patient's sister. Mrs. Alcantar. She says the patient was "her normal self about two weeks ago." She says then she started hallucinating and acting out. She says prior to coming to live with her recently, the patient lived with the brother for about 5 years. She says prior to living with the brother the patient was at a longterm and was living in [place]. The sister couldn't give a lot of insight or history concerning the patient's mental or physical health. REVIEW OF SYSTEMS Unable to assess MENTAL STATUS EXAMINATION Unable to assess Assessment and Plan (1) Acute psychosis TREATMENT PLAN 1013 Recommend a complete medical work up to rule out delirium Increased Olanzapine 10mg po daily Klonopin 0.25mg po BID X 3 days Sitter: per primary Medical: per primary Disposition: Recommend acute psychiatric treatment. It is my recommendation the patient undergo a complete medical workup to rule out delirium. Will follow. Thanks Case staffed with Dr. Yun
[2021-02-07 12:14] VITALS: BP 134/62
== END 2021-02-07 18:16 ==
LOC: EEVIPCON 23:40 → ED 23:40
DX: Z13.30 Encounter for screening examination for mental health and behavioral disorders, unspecified (principal); Z20.822 Contact with and (suspected) exposure to COVID-19; Z87.891 Personal history of nicotine dependence; G30.9 Alzheimer's disease, unspecified; F02.80 Dementia in other diseases classified elsewhere, unspecified severity, without behavioral disturbance, psychotic disturbance, mood disturbance, and anxiety
CPT/HCPCS: 70450; 71045; 93005; 96372; 99285; J1630; Q0177; U0003

== ENCOUNTER 2021-02-23 14:14 | Emergency (ER) | payer MEDICARE ==
--- NOTE | 2021-02-23 15:17 | Emergency Department Report ---
ED General Adult HPI - General Chief complaint: Psych Stated complaint: TRIED TO HURT HERSELF Time Seen by Provider: 02/23/21 14:54 Source: family Mode of arrival: Ambulatory Limitations: Altered Mental Status - History of Present Illness Initial comments: Patient was brought in by family because of confusion and altered mental status. They report that this is not her. History is somewhat convoluted. The current caregiver, who states that this is her sister, brought her in because she has been agitated. Last night she apparently grabbed a knife and "lost it." The sister is concerned what may have happened if she had not taken the knife away f rom the patient. She reports that the patient has been talking about people that are not there, talking about things that did not happen, and seems to be confused. She states that up until recently, this was not the patient's status. She then goes on to tell me that the patient is only been with her since October. When she was first with her, there was no problem. Subsequent to that, the patient started to decompensate. The sister also tells me that it was the brother that move the patient down here from [place]. The patient had allegedly lived in [place] for 6 years. The brother thought that there was a problem but did not apparently relay this information to the sister. The sister and the patient failed to mention to me that they were here recently and admitted from a psychiatric perspective. - Related Data Home Medications Medication Instructions Recorded Confirmed Last Taken Donepezil HCl [Donepezil HCl Odt] 10 mg PO HS 05/30/19 02/06/21 05/29/19 Memantine HCl 5 mg PO BID 05/30/19 02/06/21 05/29/19 Ergocalciferol (Vitamin D2) 50 mcg PO DAILY 02/06/21 02/06/21 Unknown [Vitamin D2] Allergies Allergy/AdvReac Type Severity Reaction Status Date / Time No Known Allergies Allergy Verified 02/05/21 23:59 ED Review of Systems ROS: Stated complaint: TRIED TO HURT HERSELF Other details as noted in HPI Comment: Unobtainable due to pts medical conditions (Patient is confused at baseline and has tangential thought. She will not answer questions cogently) ED Past Medical Hx - Past Medical History Previous Medical History?: Yes Hx Dementia: Yes Additional medical history: Alzheimers - Surgical History Past Surgical History?: Yes - Family History Family history: no significant - Social History Smoking Status: Smoker, Current Status Unknown Substance Use Type: None - Medications Home Medications: Home Medications Medication Instructions Recorded Confirmed Last Taken Type Donepezil HCl [Donepezil HCl Odt] 10 mg PO HS 05/30/19 02/06/21 05/29/19 History Memantine HCl 5 mg PO BID 05/30/19 02/06/21 05/29/19 History Ergocalciferol (Vitamin D2) 50 mcg PO DAILY 02/06/21 02/06/21 Unknown History [Vitamin D2] ED Physical Exam - General Limitations: Altered Mental Status, Other ( pulse ox noted and normal) General appearance: alert, in no apparent distress, other ( disheveled) - Head Head exam: Present: atraumatic, normocephalic, normal inspection - Eye Eye exam: Present: normal appearance, EOMI. Absent: scleral icterus - ENT ENT exam: Present: normal exam, mucous membranes dry, normal external ear exam - Neck Neck exam: Present: normal inspection. Absent: meningismus - Respiratory Respiratory exam: Present: normal lung sounds bilaterally. Absent: respiratory distress - Cardiovascular Cardiovascular Exam: Present: regular rate, normal rhythm - GI/Abdominal GI/Abdominal exam: Present: soft. Absent: tenderness - Extremities Exam Extremities exam: Present: normal capillary refill - Back Exam Back exam: Absent: CVA tenderness (R), CVA tenderness (L) - Neurological Exam Neurological exam: Present: alert, altered ( confused), CN II-XII intact, normal gait, reflexes normal. Absent: motor sensory deficit - Psychiatric Psychiatric exam: Present: normal affect, normal mood - Skin Skin exam: Present: warm, dry ED Course Vital Signs 02/23/21 02/23/21 14:24 14:34 Temperature 98 F Pulse Rate 91 H Respiratory 16 20 Rate Blood Pressure 146/84 [Left] O2 Sat by Pulse 96 97 Oximetry - Reevaluation(s) Reevaluation #1: 02/23/21 15:17 IV and labs ordered. CT was ordered. Old records reviewed. Reevaluation #2: 02/23/21 19:24 UA and psych consult are still pending. Patient clinically does not have symptoms of UTI and will be medically cleared. Reevaluation #3: 02/23/21 20:16 Labs been reviewed. UA and psych evaluation are pending. ED Medical Decision Making - Lab Data Result diagrams: 02/23/21 16:01 02/23/21 16:01 - Medical Decision Making Patient presents with altered mental status. She was found to be delusional. She had nonsensical speech. She was not suicidal or homicidal. The family stated that she did have a knife last night and they were concerned that she could harm herself or someone else. Currently, she is medically cleared. She had no dysuria and I do not believe this represents her Mata tract infection. I suspect that this is decompensated dementia. Psychiatric evaluation is currently pending. Critical Care Time: No Critical care attestation.: If time is entered above; I have spent that time in minutes in the direct care of this critically ill patient, excluding procedure time. ED Disposition Clinical Impression: Confusion, History of dementia Disposition: 30 STILL A PATIENT Is pt being admited?: No Condition: Stable Referrals: PRIMARY CARE, [Primary Care Provider] - 3-5 Days
[2021-02-23] MEDS ORDERED: OLANzapine ZYDIS 5 MG TAB PO ONE (15:19)
[2021-02-23 16:13] LABS: Basophils % (Auto) 0.8 % (0.0-1.8); Eosinophils # (Auto) 0.1 K/mm3 (0.0-0.4); Eosinophils % (Auto) 1.3 % (0.0-4.3); Hematocrit 37.3 % (30.3-42.9); Hemoglobin 12.3 gm/dl (10.1-14.3); Lymphocytes # (Auto) 1.1 K/mm3 (1.2-5.4); Lymphocytes % (Auto) 22.1 % (13.4-35.0); Mean Corpuscular HGB Conc 33 % (30-34); Mean Corpuscular Volume 87 fl (79-97); Monocytes # (Auto) 0.5 K/mm3 (0.0-0.8); Monocytes % (Auto) 10.4 % (0.0-7.3); Platelet Count 267 K/mm3 (140-440); Red Blood Count 4.28 M/mm3 (3.65-5.03); Red Cell Distribution Width 13.2 % (13.2-15.2)
[2021-02-23 16:33] LABS: Calcium 9.8 mg/dL (8.4-10.2)
--- NOTE | 2021-02-24 09:52 | Consultation ---
History of Present Illness - Reason for Consult Consult date: 02/24/21 Reason for consult: mental health evaluation - History of Present Psychiatric Illness Yanely Napoles is a 55y/o female with unknown psychiatric diagnosis. The patient is pacing the silva with disorganized thoughts and flight of ideas. The patient is confused, and unable to participate in assessment." PAST PSYCHIATRIC HISTORY: Unable to assess PAST MEDICAL HISTORY: None reported Family Psychiatric History: None reported or documented SOCIAL HISTORY Unable to assess REVIEW OF SYSTEMS Unable to assess MENTAL STATUS EXAMINATION Unable to assess Assessment and Plan (1) Acute psychosis TREATMENT PLAN 1013 Olanzapine 5mg po daily Trazodone 50mg qhs Vistaril 25mg po BID Sitter: per primary Medical: per primary Disposition: Recommend acute psychiatric treatment Will follow. Thanks Case staffed with Dr. Yun Medications and Allergies Medications and Allergies Allergies Allergy/AdvReac Type Severity Reaction Status Date / Time No Known Allergies Allergy Verified 02/05/21 23:59 Home Medications Medication Instructions Recorded Confirmed Last Taken Type Donepezil HCl [Donepezil HCl Odt] 10 mg PO HS 05/30/19 02/06/21 05/29/19 History Memantine HCl 5 mg PO BID 05/30/19 02/06/21 05/29/19 History Ergocalciferol (Vitamin D2) 50 mcg PO DAILY 02/06/21 02/06/21 Unknown History [Vitamin D2] Mental Status Exam - Vital signs Last Vital Signs Temp 98.7 F 02/24/21 09:38 Pulse 88 02/24/21 09:38 Resp 18 02/24/21 09:38 BP 146/58 02/24/21 09:38 Pulse Ox 97 02/24/21 09:39 Results Result Diagrams: 02/23/21 16:01 02/23/21 16:01 Abnormal lab results 02/23/21 02/23/21 Range/Units 16:01 16:01 [place] % (Auto) 10.4 H (0.0-7.3) % Lymph # (Auto) 1.1 L (1.2-5.4) K/mm3 BUN 22 H (7-17) mg/dL All other labs normal.
--- NOTE | 2021-02-24 11:16 | Emergency Department Report ---
Blank Doc - Documentation Documentation: Patient continues to be confused and disorganized today. Psychiatric admission as planned. Psychiatric services has seen the patient today. We will still refer to UA once complete.
[2021-02-24 12:41] LABS: Bilirubin,Urine NEG (Negative); Blood,Urine NEG (Negative); Color,Urine Yellow (Yellow); Mucus,Urine 3+ /HPF; Protein,Urine <15 mg/dL mg/dL (Negative)
[2021-02-24 12:43] LABS: Amphetamine Screen,Urine Negative; Benzodiazepines Screen,Urine Negative; Cannabinoid Screen,Urine Negative; Cocaine Screen,Urine Negative; Methadone Screen,Urine Negative; Opiate Screen,Urine Negative
[2021-02-25 06:42] VITALS: BP 130/74
--- NOTE | 2021-02-25 10:51 | Progress Note ---
Subjective - Reason for Consult Consult date: 02/25/21 Reason for consult: Mental health evaluation - Chief Complaint Chief complaint: The patient is in seclusion this morning. She continues to be confused and pacing. PAST PSYCHIATRIC HISTORY: Unable to assess PAST MEDICAL HISTORY: None reported Family Psychiatric History: None reported or documented SOCIAL HISTORY Unable to assess REVIEW OF SYSTEMS Unable to assess MENTAL STATUS EXAMINATION Unable to assess Assessment and Plan (1) Acute psychosis TREATMENT PLAN 1013 Risperidone 0.5mg po BID Medical: per primary Disposition: Recommend acute psychiatric treatment Will follow. Thanks Case staffed with Dr. Yun Medications and Allergies Mental Status Exam - Vital signs Last Vital Signs Temp 97.9 F 02/24/21 21:38 Pulse 72 02/24/21 21:38 Resp 18 02/24/21 21:38 BP 130/74 02/24/21 21:38 Pulse Ox 96 02/24/21 21:38
[2021-02-25] MEDS ORDERED: risperiDONE 0.25 MG TAB PO SCH (11:00)
--- NOTE | 2021-02-25 12:03 | Emergency Department Report ---
Blank Doc - Documentation Documentation: This patient presented 2 days ago, 02/23, with some confusion and/or altered m ental status. She appears to have a history of Alzheimer's dementia and this may be some level of a behavioral disturbance versus progression of her Alzheimer's. The patient required seclusion this morning as she was not redirectable and appeared agitated. The psychiatric nurse practitioner has seen this patient, under Dr. Yun, and they feel that the patient still requires inpatient stabilization and continuing her 1013. They have started the patient on Risperdal. We are waiting for her Covid test to return so the patient can be placed. Vital signs reassuring including being afebrile. We will continue to monitor this patient during her ED course.
== END 2021-02-25 21:10 | disposition home or self-care (01) ==
LOC: ED 14:14 → EEVIPCON 14:14 → ED 02-25 21:10
DX: R41.0 Disorientation, unspecified (principal); Z86.59 Personal history of other mental and behavioral disorders; F17.200 Nicotine dependence, unspecified, uncomplicated; Z20.822 Contact with and (suspected) exposure to COVID-19
CPT/HCPCS: 36415; 80048; 80307; 81001; 84443; 85025; 99284; U0003; 80320; 99285; G0480